=== PATIENT | female | born 1990 | race Two or more races ===

== ENCOUNTER 2024-12-13 23:49 | Emergency (ER) | payer OTHER, SELFPAY ==
[2024-12-13 23:50] VITALS: BMI 19.3
[2024-12-13 23:58] VITALS: BP 126/78; PULSE 72; RESP 18; TEMP 37.2; O2SAT 98
--- NOTE | 2024-12-14 00:52 | PD.EDRME ---
Rapid Medical Screening Exam RME Arrival date/time: 12/13/24 23:49 Chief Complaint: Abdominal Pain Time Seen by Provider: 12/14/24 00:30 Vital signs: Vital Signs Temperature 98.9 F 12/13/24 23:58 Pulse Rate 72 12/13/24 23:58 Respiratory Rate 18 12/13/24 23:58 Blood Pressure 126/78 12/13/24 23:58 Pulse Oximetry (%) 98 12/13/24 23:58 Oxygen Delivery Method Room Air 12/13/24 23:58 Vital signs reviewed by provider: Yes RME Narrative: 34-year-old female presents to the ED with a complaint of right flank pain. Pain began today while she was visiting her niece at [facility]. She was seen and treated in their emergency department and diagnosed with a 6mm renal calculi. She was given an anti-inflammatory and injection as well as prescribed Flomax. On her way home from [place] today she started experiencing worsening pain. [facility] contacted her and told her that the renal calculi is obstructing the ureter and to go to her nearest emergency department. She denies any fever or chills. I have greeted and performed a focused initial assessment of this patient. A comprehensive ED assessment and evaluation of the patient, analysis of all test results, and completion of the medical decision making process will be conducted by additional ED providers.
[2024-12-14 01:08] LABS: Collection Type, Urine Clean Catch
[2024-12-14 01:14] LABS: Basophils % (Auto) 0 % (0-2.5); Eosinophils # (Auto) 0.1 Thou/mm3 (0.0-0.5); Eosinophils % (Auto) 1 % (0-10); Hematocrit 35.8 % (36.0-46.0); Hemoglobin 12.5 g/dL (12.0-16.0); Immature Granulocytes % (Auto) 1 % (0-0); Immature Granulocytes Auto 0.04 Thou/mm3 (0.00-0.00); Lymphocytes # (Auto) 2.8 Thou/mm3 (1.0-4.8); Lymphocytes % (Auto) 32 % (10-50); Mean Corpuscular HGB Conc 34.9 g/dl (31.0-37.0); Mean Corpuscular Volume 86 fL (80-100); Monocytes # (Auto) 0.7 Thou/mm3 (0.0-0.8); Monocytes % (Auto) 8 % (0-12); Neutrophils # (Auto) 4.9 Thou/mm3 (1.8-7.7); Neutrophils % (Auto) 58 % (37-80); Nucleated Red Blood Cell % 0 /100 WBC (0); Platelet Count 222 Thou/mm3 (140-440); RDW Standard Deviation 38.7 fL (36.4-46.3); Red Blood Count 4.16 Miln/mm3 (4.00-5.20); White Blood Count 8.5 Thou/mm3 (3.6-11.0)
[2024-12-14 01:17] LABS: Bilirubin,Urine Negative (Negative); Blood,Urine 1+ (Negative); Clarity,Urine Clear (Clear/Hazy); Color,Urine Lt-Yellow (Lt Yel-Yel); Glucose, Urine Negative (Negative); Ketones,Urine Negative (Negative); Leukocyte Esterase,Urine Negative (Negative); Nitrite,Urine Negative (Negative); PH,Urine 6.5 (5.0-7.0); Protein,Urine Negative (Neg - Trace); RBC,Urine 2 /hpf (0-3); Specific Gravity,Urine 1.016 (1.001-1.035); Squamous Epithelial Cell,Urine 2 /hpf (0-5); Urobilinogen,Urine Negative mg/dL (0.0-1.0); WBC,Urine 3 /hpf (0-5)
[2024-12-14 01:23] LABS: HCG Qualitative,Urine Negative
[2024-12-14 01:42] LABS: Alanine Aminotransferase 10 U/L (10-49); Albumin, Serum 4.4 gm/dL (3.5-5.0); Albumin/Globulin Ratio 1.9 (1.2-2.2); Alkaline Phosphatase 34 U/L (46-116); Amylase 94 U/L (30-118); Anion Gap 9 (7-16); Aspartate Amino Transferase 16 U/L (0-34); BUN/Creatinine Ratio 17 Ratio (12-20); Bilirubin,Total 1.3 mg/dL (0.3-1.2); Blood Urea Nitrogen 12 mg/dL (9-23); Calcium 8.7 mg/dL (8.3-10.6); Calcium (Corrected) 8.7 mg/dL (8.5-10.1); Carbon Dioxide 25.8 mMol/L (20.0-31.0); Chloride 109 mMol/L (98-107); Creatinine (Component) 0.7 mg/dL (0.6-1.3); Estimated Creatinine Clearance 87.6 mL/min (>60); Globulin 2.3 gm/dL (2.3-3.5); Glucose 108 mg/dL (74-106); Lipase 31 U/L (12-53); Osmolality,Calculated 287 (275-295); Potassium 3.9 mMol/L (3.4-5.1); Sodium 144 mMol/L (136-145); Total Protein 6.7 gm/dL (5.7-8.2); eGFR > 60 See Note
== END 2024-12-14 02:11 | disposition left against medical advice (07) ==
LOC: SERX 12-14 00:30
PROVIDERS: Physician Assistant; Emergency Provider Emergency Medicine
DX: R10.9 Unspecified abdominal pain (principal); Z53.29 Procedure and treatment not carried out because of patient's decision for other reasons
CPT/HCPCS: 36415; 80053; 81001; 81025; 82150; 83690; 85025; 87086; 99281